=== PATIENT | male | born 1970 | race Caucasian/White ===

== ENCOUNTER 2017-12-23 22:47 | Emergency (ER) | payer BC ==
[~2017-12-23] VITALS: Ht 188 cm; Wt 90.7 kg
[2017-12-23 23:12] VITALS: BP 134/77
[2017-12-23] MEDS ORDERED: TDAP [DIPH/PERTUSSIS/TET] 0.5 ML VIAL IM ONE ×2 (23:30→23:35)
[2017-12-23] MEDS ORDERED: AMOX/CLAVULANATE 875 MG TABLET PO ONE (23:30)
[2017-12-23] MEDS ORDERED: AMOX/CLAVULANATE 875 MG TABLET ONE (23:35)
== END 2017-12-23 23:59 | disposition home or self-care (01) ==
LOC: ER 22:54
DX: S61.253A Open bite of left middle finger without damage to nail, initial encounter (principal); W54.0XXA Bitten by dog, initial encounter; Y93.89 Activity, other specified; Y92.89 Other specified places as the place of occurrence of the external cause; Y99.8 Other external cause status
CPT/HCPCS: 90715; A4606; Z7610